=== PATIENT | male | born 1955 | race African-American/Black ===

== ENCOUNTER 2023-05-08 10:07 | Emergency (ER) | payer MEDICAID ==
[~2023-05-08] VITALS: Ht 193 cm; Wt 110.0 kg
[~2023-05-08 10:07] MED LIST: AMLO10TA80 PO; FURO-151 PO; METO-539 PO
[2023-05-08 10:26] VITALS: TEMP 98; O2SAT 100
[2023-05-08] MEDS ORDERED: WARFARIN (10:26)
[2023-05-08] MEDS: SODIUM CHLORIDE 0.9% 1,000 ML IV ONE (10:30)
[2023-05-08 11:00] LABS: BASOPHILS % 0.6 % (0.0-2.0); EOSINOPHILS % 3.8 % (0.0-5.0); HEMATOCRIT. 36.2 % (42.0-52.0); HEMOGLOBIN. 11.8 g/dL (14.0-18.0); LYMPHOCYTES % 25.2 % (20.0-50.0); MEAN CORPUSCULAR HEMOGLOBIN 30.1 pg (28.0-32.0); MEAN CORPUSCULAR HGB CONC 32.6 g/dL (31.0-37.0); MEAN CORPUSCULAR VOLUME 92.3 fL (80.0-94.0); MEAN PLATELET VOLUME 7.5 fl (7.4-10.4); MONOCYTES % 12.4 % (2.0-8.0); PLATELET 199 x1000/uL (130-400); RED BLOOD CELL COUNT 3.92 mill/uL (4.7-6.1); RED CELL DISTRIBUTION WIDTH 15.7 % (11.6-14.6); WHITE BLOOD COUNT 3.4 x1000/uL (4.5-11.0)
[2023-05-08 11:10] LABS: ALANINE AMINOTRANSFERASE 19 IU/L (10-49); ALBUMIN 3.7 g/dL (3.2-4.8); ASPARTATE AMINOTRANSFERASE 19 IU/L (<34); BILIRUBIN TOTAL 0.4 mg/dL (0.1-1.0); CARBON DIOXIDE 29 mEq/L (21-32); CHLORIDE 109 mEq/L (98-107); CREATININE 0.8 mg/dL (0.6-1.3); GLUCOSE 83 mg/dL (70-105); PROTEIN TOTAL 7.1 g/dL (6.0-8.3); SODIUM 141 mEq/L (136-145); TROPONIN I HIGH SENSITIVITY 10 ng/L (3.0-53); UREA NITROGEN BLOOD 15 mg/dL (9-23)
[2023-05-08 11:27] LABS: ETHANOL BLOOD < 10 mg/dL (<10)
[2023-05-08 15:18] LABS: TROPONIN I HIGH SENSITIVITY 11 ng/L (3.0-53)
[2023-05-08 17:40] VITALS: BP 165/68; PULSE 64; RESP 16
[2023-05-08] MEDS ORDERED: IOHEXOL-350 100 ML BOTTLE ONE (19:28)
== END 2023-05-08 17:47 | disposition home or self-care (01) ==
LOC: ER 10:07
DX: R00.2 Palpitations (principal); R07.89 Other chest pain; R06.02 Shortness of breath; I10 Essential (primary) hypertension; F12.10 Cannabis abuse, uncomplicated; Z95.0 Presence of cardiac pacemaker
CPT/HCPCS: 80053; 80320; 83880; 83605; 83690; 85025; 86850; 86900; 86901; 84484; 36415; 74174; 71045; 71275; 96360; 99284; Q9967; J7030; Z7610; G0480